=== PATIENT | female | born 1985 | race Caucasian/White ===

== ENCOUNTER 2018-09-09 13:15 | Inpatient (IN) | END 2018-09-11 16:41 | disposition home or self-care (01) | DRG 833 ==

== ENCOUNTER 2018-10-12 15:38 | Inpatient (IN) | payer OTHER ==
[~2018-10-12] VITALS: Ht 154.9 cm; Wt 66.3 kg
[~2018-10-12 15:38] MED LIST: PREN-93 PO
[2018-10-12 15:45] VITALS: BMI 27.6
[2018-10-12] MEDS ORDERED: TERBUTALINE 0 ML ONE (15:58)
[2018-10-12 16:00] VITALS: Ht 154.9 cm; Wt 66.3 kg
[2018-10-12] MEDS ORDERED: TERBUTALINE 1 MG/ML INJ SC ONE (16:00)
[2018-10-12] MEDS: LACTATED RINGER'S 1,000 ML IV SCH ×2 (16:25→19:50)
[2018-10-12] MEDS ORDERED: MAGNESIUM SULFATE 4 GM/100 ML 100 ML IV ONE (17:30)
[2018-10-12] MEDS: MAGNESIUM SULFATE 20 GM/500 ML 500 ML IV SCH (18:37)
[2018-10-12] MEDS ORDERED: BETAMET NA PHOS/AC(6 MG/ML) 2 ML INJ SYG IM ONE (21:00)
--- NOTE | 2018-10-12 23:48 | HP ---
Date/Time of Note Date/Time of Note DATE: 10/12/18 TIME: 23:32 OB - History Hx of Present Free Text/Dictation 33 y.o. A1 with an IUP at 33w 4d came in with moderate bleeding and was found to be suyapa so was admitted and started on magnesium sulfate. Chief Complaint: bleeding Estimated Due Date: Oct 12, 2018 : 2 Para: 0 Spontaneous : 1 Care: Good Care Ultrasounds: Normal mid trimester US Obstetrical Complications: Gestational Diabetes (newly diagnosed, as of last week.) Medical Complications: None Other Concerns: Pt was admitted one month ago with light bleeding but was not suyapa although an FFN was positive. Was given 2 doses of beta-methasone and d/c'ed home. PMHx: GDM. PSHx: none. NKDA. Past Family/Social History * Past Medical, Surgical, Family and Obstetric Histories reviewed from chart and with pt. Blood Type: O+ Rubella: immune RPR/VDRL: Negative GBS Status: Unknown HBsAG: Unknown OB Admission Exam Vital Signs Vital Signs Initial BP 141/88 Afebrile. Physical Exam HEENT: WNL Heart: Rhythm Normal Abdomen: WNL Extremities: Normal Reflexes: Normal Cervical Dilatation: None Effacement: 0% Station: Ballotable Membranes: Intact Heart Rate: 140's Accelerations: Accelerations Present Decelerations: No Decelerations Contractions on Admission: < 5 Minutes Apart Intensity: Mild Last 72 hours Lab Results CBC & BMP 10/12/18 16:06 Liver Function Test 10/12/18 16:06 Alanine Aminotransferase (ALT/SGPT) 15 Albumin 3.5 Alkaline Phosphatase 129 H Aspartate Amino Transf (AST/SGOT) 26 Direct Bilirubin 0.00 Total Protein 7.0 Magnesium Level Test 10/12/18 16:06 Magnesium Level 1.8 OB Assessment/Plan Reason for admission: labor, vaginal bleeding Other plan: Tocolysis with magnesium sulfate and a rescue dose of beta-methasone. Contractions increase when the pt has a need to void and then immediately space out once she has. Bedrest. Cx is 3.8 cm and closed, placenta anterior and w/o evidence of abruption and the pt reports that the pelvic pressure/cramping is greatly decreased, as well as the bleeding, since she came in. DEBO HARRIS MD Oct 12, 2018 23:44
[2018-10-13] MEDS: MAGNESIUM SULFATE 20 GM/500 ML 500 ML IV SCH ×2 (04:17→15:41)
[2018-10-13] MEDS: LACTATED RINGER'S 1,000 ML IV SCH ×4 (06:00→19:34)
--- NOTE | 2018-10-13 11:23 | QN ---
Documentation Comment progress note patient seen and evaluated no complaints no ctx, vaginal bleeding or discharge ab gravid, soft, nt extremity no edema no calf tenderness ve no active bleeding a/ iup atg 33 wks 5 days ga, vaginal bleeding resolved, no sign/symptoms of placenta abruption currently on mgso, received rescue sternoid treatment p/ repeat cbc today f/u with perinatology ESSIE GUTIERREZ MD Oct 13, 2018 11:23
[2018-10-13] MEDS ORDERED: BETAMET NA PHOS/AC(6 MG/ML) 2 ML INJ SYG IM ONE (13:00)
[2018-10-13] MEDS ORDERED: GLUCAGON 1 MG INJ IM PRN (14:30)
[2018-10-13] MEDS ORDERED: DEXTROSE 50% 50 ML SYRINGE IV PRN ×2 (14:30)
[2018-10-13] MEDS ORDERED: GLUCOSE GEL 15 GRAM TUBE PO PRN ×2 (14:30)
[2018-10-13] MEDS ORDERED: GLUCOSE GEL 15 GRAM TUBE BUCCAL PRN (14:30)
[2018-10-13] MEDS: INSULIN ASPART [NOVOLOG] 3 ML PEN SC SCH (17:05)
--- NOTE | 2018-10-14 00:04 | CONS ---
DATE OF ADMISSION: 10/12/2018 DATE OF CONSULTATION: 10/13/2018 HISTORY OF PRESENT ILLNESS: The patient presented with complaint of contractions and some spotting. She was placed on magnesium sulfate, given betamethasone. Currently, she is not bleeding and not co ntracting. Cervical length was 3.8 cm. She was newly, about 30 days ago, diagnosed with diabetes and given betamethasone. Her sugars are el evated. Ultrasound has been done which shows no evidence of previa; however, it is contradictory in terms of exactly which is the location of the placenta anterior, posterior or fundal as different reports repo rt different locations. However, it is consistent with no evidence of previa according to the ultras ounds done at [facility]. RECOMMENDATIONS: Continue with the magnesium sulfate until tomorrow morning. She is to get her [place] dose of betamethasone tonight. If she is not suyapa and no vaginal bleeding, she can be discharged home with labor prec autions. I do recommend to discharging the patient home on metformin 500 mg in the morning and 500 m g at bedtime with referral for perinatology consult for diabetes within a week of discharge. At that point, we will decide if the patient needs to be continued on medication or without the effect of be tamethasone, she can be managed with diet. Also, please refer for the transvaginal ultrasound to assess for previa, also for location of the rakel centa once and for all. Also, I started the patient on insulin sliding scale. Please do note that the patient does need a gl ucometer before going home and lancets and strips and everything else that is needed for diabetic con trol. Lastly, the patient is to be referred to diabetic consult and as I mentioned above. Dictated By: BRIAN ETIENNE MD ST/NTS Conf#: [id number] DID#: [id number] CC: DEBO HARRIS MD;*EndCC*
[2018-10-14] MEDS: ACCU-CHEK XX SCH ×4 (07:35→21:09)
[2018-10-14] MEDS: INSULIN ASPART [NOVOLOG] 3 ML PEN SC SCH ×3 (08:26→17:35)
[2018-10-14] MEDS: LACTATED RINGER'S 1,000 ML IV SCH ×2 (09:18→22:57)
--- NOTE | 2018-10-14 12:15 | NUR ---
Diabetes Education Referral: Thank you for the referral. Per records 3 hr GTT: 79/221/172/178 mg/dl Pt stated she did not have diabetes before 1 week ago. Pt stated she doesn't have any one in her household that has DM. Reviewed the cause of GDM and how the steroids are also causing the glucose levels to be higher than usual. With the use of sand operator (Nicolle) and handouts discussed at length with patient at bedside how diabetes works in the body, where the glucose comes from, how food breaks down into glucose, and how Metformin works. Reviewed glucose targets (pre and post meal), reviewed the different food groups and when/how to manage glucose by adjusting the carbohydrates and proteins. Reviewed signs and symptoms of hypoglycemia and treatment. After eligibility check, pt provided a Freestyle Lite glucometer. Reviewed how to use glucometer, change date and time, load lancet devices and how to correctly complete a glucose reading. Assisted patient in completing a finger stick, hospital glucometer read 108 mg/dl and pt's personal glucometer read 120 mg/dl. Reviewed the difference and reassured pt it was within the acceptable difference range. Reviewed that for lunch pt should avoid carbohydrates and focus on eating protein and vegetables. Pt verbalized understanding. Resources provided for future follow up. All questions answered.
--- NOTE | 2018-10-14 14:20 | NUR ---
Nutrition Consult RN, LYNN just finished a consult with her regarding GDM management. Pt. was tired and refused further education with me. I asked her to take the the GDM class next week on Saturday, which covers everything about diet and exercise. Pt. promised that she will attend the class next week. Will revisit tomorrow at bedside to answer any diet related questions. Thank you!
--- NOTE | 2018-10-14 17:50 | QN ---
Documentation Comment progress note patient seen and evaluated no complaints vs stabel afebrile patient reports large clots from vagina this morning currently no vaginal bleeding no ctx, no pain ab gravid, soft, nt extremity no edema no calf tenderness ve no active bleeding fhr cat 1 toco no ctx a/ iup atg 33 wks 5 days ga, third trimester vaginal bleeding, no sign/symptoms of placenta abruption received rescue sternoid treatment h/h stable p/ continue to monitor patient bleeding closely f./u with perinatology ESSIE GUTIERREZ MD Oct 14, 2018 17:50
[2018-10-15] MEDS: INSULIN ASPART [NOVOLOG] 3 ML PEN SC SCH ×3 (07:35→17:35)
[2018-10-15] MEDS: ACCU-CHEK XX SCH ×7 (07:35→21:00)
--- NOTE | 2018-10-15 13:24 | QN ---
Documentation Comment progress note patient seen and evaluated no complaints vs stable afebrile no vaginal bleeding/discharge currently no vaginal bleeding no ctx, no pain ab gravid, soft, nt extremity no edema no calf tenderness ve no active bleeding sono possible small placenta abruption fhr cat 1 toco no ctx a/ iup atg 33 wks 6 days ga, third trimester vaginal bleeding, no symptoms of placenta abruption received rescue sternoid treatment h/h stable p/ continue to monitor patient bleeding closely f./u with perinatology ESSIE GUTIERREZ MD Oct 15, 2018 13:24
[2018-10-15] MEDS: LACTATED RINGER'S 1,000 ML IV SCH (23:04)
[2018-10-16] MEDS: INSULIN ASPART [NOVOLOG] 3 ML PEN SC SCH (07:35)
[2018-10-16] MEDS: ACCU-CHEK XX SCH ×4 (08:15→20:20)
--- NOTE | 2018-10-16 08:36 | QN ---
Documentation Comment progress note patient seen and evaluated no complaints had vaginal spotting last night which resolved vs stable afebrile no vaginal bleeding/discharge currently no vaginal bleeding no ctx, no pain ab gravid, soft, nt extremity no edema no calf tenderness ve no active bleeding sono possible small placenta abruption fhr cat 1 toco no ctx a/ iup atg 34 wks 0 days ga, third trimester vaginal bleeding, no symptoms of placenta abruption received rescue sternoid treatment h/h stable p/ continue to monitor patient bleeding closely f./u with perinatology ESSIE GUTIERREZ MD Oct 16, 2018 08:36
[2018-10-16] MEDS: LACTATED RINGER'S 1,000 ML IV SCH (10:27)
[2018-10-17] MEDS: LACTATED RINGER'S 1,000 ML IV SCH (08:30)
[2018-10-17] MEDS: ACCU-CHEK XX SCH (10:55)
--- NOTE | 2018-10-17 13:36 | QN ---
Documentation Comment progress note patient seen and evaluated no complaints vs stable afebrile no vaginal bleeding/discharge currently no vaginal bleeding no ctx, no pain ab gravid, soft, nt extremity no edema no calf tenderness ve no active bleeding sono possible small placenta abruption fhr cat 1 toco no ctx a/ iup atg 34 wks 1 days ga, third trimester vaginal bleeding, no symptoms of placenta abruption received rescue sternoid treatment stable p/ continue to monitor patient bleeding closely f./u with perinatology ESSIE GUTIERREZ MD Oct 17, 2018 13:36
--- NOTE | 2018-10-18 07:16 | CONS ---
DATE OF ADMISSION: 10/12/2018 DATE OF CONSULTATION: 10/16/2018 HISTORY OF PRESENT ILLNESS: I had a brief consult on the patient previously. However, her situation has changed. So this is a new consult. This is a primigravida at 34 weeks and 3 days, who was admi tted a few days ago with complaint of vaginal bleeding. Cervical length normal. Based on the ultras ound there is no evidence of previa; however, there are some annular abnormalities of the placenta no shanika on the ultrasound. I reviewed the ultrasounds done in our clinic. I do not see any of the evide nce of the annular placenta and no abnormality around the placenta. She has had since her hospital s xuan she had another episode of blood clot the day before the consult so she was kept. She initially received magnesium sulfate, was given the rescue dose of betamethasone. She is currently status post magnesium. She is not suyapa and does not have any feeling of cramping or contractions. ALLERGIES: None. SURGICAL HISTORY: None. REVIEW OF SYSTEMS: All negative for all systems. PHYSICAL EXAMINATION: VITAL SIGNS: Stable. Physical examination deferred. heart tones reassuring. Contractions just irritabilities. IMPRESSION: Intrauterine at 34 weeks and at the time that I saw her 34 weeks and 1 day wit h at least 2 episodes of vaginal spotting and blood clot without evidence of previa, so the source of bleeding is unknown and her cervical length is normal. Status post magnesium and betamethasone, currently stable. RECOMMENDATIONS: Given the fact that she had 2 episodes of bleeding without any known reason, I do r ecommend in-house management until delivery. I will personally be present for the ultrasound beginni ng of next week just to assess the placenta with the gas worker personally. Please monitor the baby continuously. Otherwise, routine care. She should have a Hep-Lock IV. If she does have any severe bleeding please contact us further recommendations. Otherwise, as long a s there is no placenta previa and at that time vaginal delivery can be attempted if necessary, and I would have to say that delivery is not recommended unless he has heavy bleeding, contractions that ca nnot be stopped by tocolysis, or nonreassuring heart tone. Otherwise, continue the u ntil the patient goes into labor. I spoke to Dr. Sutton and to the patient about this. Dictated By: BRIAN ETIENNE MD ST/NTS Conf#: [id number] DID#: [id number] CC: DEBO HARRIS MD;*End*
[2018-10-18 07:54] VITALS: BP 97/47; PULSE 72; RESP 18
--- NOTE | 2018-10-18 11:44 | QN ---
Documentation Comment 33-year-old 2 para 0 at 34 weeks and 3 days of gestation with estimated date of delivery November 26, 2018 Patient is known to have annular placenta and was admitted in the hospital in September for vaginal bleeding She had received magnesium sulfate and betamethasone for lung maturity and subsequently discharged home She was admitted again the second time on October 12 with an episode of passing vaginal blood clot and patient subsequently received a second set rescue dose of betamethasone She currently has no complaints of vaginal bleeding, no complaints of uterine contractions or leaking fluid and reports positive movement She is gestational diabetic diet controlled Blood sugars within normal range Vital signs stable VS - Last 72 Hours, by Label Date Temp Pulse Resp B/P (MAP) Pulse Ox O2 O2 Flow FiO2 Time Delivery Rate 10/18/18 98.4 72 18 97/47 (64) Room Air 07:54 Chemistry Test 10/15/18 12:53 10/15/18 15:17 10/15/18 17:40 10/15/18 20:25 Bedside 79 88 76 108 Glucose mg/dL (70-220) mg/dL (70-220) mg/dL (70-220) mg/dL (70-220) Test 10/16/18 07:51 10/16/18 11:23 10/16/18 15:33 10/16/18 20:20 Bedside 79 74 106 109 Glucose mg/dL (70-220) mg/dL (70-220) mg/dL (70-220) mg/dL (70-220) Test 10/17/18 07:41 10/17/18 11:15 10/17/18 21:00 10/18/18 07:25 Bedside 80 79 118 88 Glucose mg/dL (70-220) mg/dL (70-220) mg/dL (70-220) mg/dL (70-220) [place] none heart rate tracing category 1 Cervical length within normal limits 3.8 cm PROCEDURE: US OB. CLINICAL INDICATION: bleeding , pain TECHNIQUE: Transabdominal views of the pelvis are available for review. COMPARISON: 10/12/18 FINDINGS: There is a single intrauterine gestation in a vertex position. The heart rate is noted at 154 bpm. The placenta is annular. There is a small amount of free retroplacental fluid noted. RPTAT: AA IMPRESSION: Small amount of retroplacental fluid, suspicious for a small area of placental abruption. Follow-up is recommended .Octaviano Matthews MD, Date Time Electronically viewed and signed by .Octaviano Matthews MD, on 10/14/2018 19:19 .S/ CC: ESSIE GUTIERREZ MD [id number] Assessment and plan Per perinatology consultation patient can continue until she goes into labor on her own Delivery is only recommended if she has heavy vaginal bleeding, uterine contractions that do not respond to tocolytics or nonreassuring heart rate tracing Patient scheduled to have an ultrasound by perinatologist on Saturday October 20, 2018 Will send for UA today Continue with current management DERRICK BHATIA MD Oct 18, 2018 11:44
[2018-10-18 12:06] VITALS: BP 103/55; PULSE 70; RESP 18
[2018-10-18 15:29] VITALS: BP 101/55; RESP 18
[2018-10-18 15:31] VITALS: BP 117/57; RESP 20
--- NOTE | 2018-10-19 11:40 | QN ---
Documentation Comment 34+wks GA admitted with Vb suspicious of Abruption Currently stable No VB BS stable GEN NAD NST reassuring [place] No CTXs Pelvic No blood at perineum --->Continue the same orders ALPESH ALEXIS M.D. Oct 19, 2018 11:40
[2018-10-19] MEDS ORDERED: CEPHALEXIN 500 MG CAP PO SCH (16:00)
[2018-10-19] MEDS: LACTATED RINGER'S 1,000 ML IV SCH (17:39)
[2018-10-20] MEDS: CEPHALEXIN 500 MG CAP PO SCH ×4 (00:04→21:14)
[2018-10-20] MEDS: LACTATED RINGER'S 1,000 ML IV SCH ×2 (01:13→09:31)
[2018-10-20] MEDS: PRENATAL VITAMIN PO SCH (10:13)
[2018-10-20] MEDS: FERROUS SULFATE (EC) 325 MG TAB PO SCH (10:13)
--- NOTE | 2018-10-20 11:59 | QN ---
Documentation Comment progress note patient seen and evaluated no complaints vs stable afebrile no vaginal bleeding/discharge currently no vaginal bleeding no ctx, no pain ab gravid, soft, nt extremity no edema no calf tenderness ve no active bleeding sono possible small placenta abruption fhr cat 1 toco no ctx a/ iup atg 34 wks ga, third trimester vaginal bleeding, no symptoms of placenta abruption received rescue sternoid treatment stable p/ continue to monitor patient bleeding closely f./u with perinatolog ESSIE GUTIERREZ MD Oct 20, 2018 11:59
[2018-10-21] MEDS: CEPHALEXIN 500 MG CAP PO SCH ×4 (03:35→19:12)
[2018-10-21] MEDS: FERROUS SULFATE (EC) 325 MG TAB PO SCH (09:17)
[2018-10-21] MEDS: PRENATAL VITAMIN PO SCH (09:17)
[2018-10-22] MEDS: CEPHALEXIN 500 MG CAP PO SCH ×4 (00:15→18:32)
[2018-10-22] MEDS: NACL 0.9% 3 ML SYG IV SCH ×3 (00:19→16:13)
--- NOTE | 2018-10-22 07:16 | PN ---
DATE: 10/21/2018 I did the ultrasound with the radiology sport internship. I do not see any evidence of placenta previa. Placenta is slightly to the right posterior and I do not see any evidence of annular placenta as ment ioned in the radiology report. Therefore, I do not know still the reason for the patient's bleeding and therefore it is best for the patient to be kept in house until delivery and the recommendations f or delivery remain as the same as I stated in my previous consult. Dictated By: BRIAN ETIENNE MD ST/NTS Conf#: [id number] DID#: [id number] CC: DEBO HARRIS MD;*EndCC*
[2018-10-22] MEDS: FERROUS SULFATE (EC) 325 MG TAB PO SCH (08:57)
[2018-10-22] MEDS: PRENATAL VITAMIN PO SCH (08:57)
--- NOTE | 2018-10-22 13:50 | QN ---
Documentation Comment progress note patient seen and evaluated no complaints vs stable afebrile no vaginal bleeding/discharge currently no vaginal bleeding no ctx, no pain ab gravid, soft, nt extremity no edema no calf tenderness ve no active bleeding sono possible small placenta abruption fhr cat 1 toco irritability a/ iup atg 34 wks ga, third trimester vaginal bleeding, no symptoms of placenta abruption received rescue sternoid treatment stable p/ continue to monitor patient bleeding closely ESSIE GUTIERREZ MD Oct 22, 2018 13:50
[2018-10-23] MEDS: CEPHALEXIN 500 MG CAP PO SCH ×5 (00:19→23:37)
[2018-10-23] MEDS: NACL 0.9% 3 ML SYG IV SCH (00:20)
[2018-10-23] MEDS: PRENATAL VITAMIN PO SCH (10:12)
[2018-10-23] MEDS: FERROUS SULFATE (EC) 325 MG TAB PO SCH (10:12)
--- NOTE | 2018-10-23 18:07 | QN ---
Documentation Comment progress note patient seen and evaluated no complaints vs stable afebrile no vaginal bleeding/discharge currently no vaginal bleeding no ctx, no pain ab gravid, soft, nt extremity no edema no calf tenderness ve no active bleeding sono possible small placenta abruption fhr cat 1 toco irritability a/ iup atg 35 wks ga, third trimester vaginal bleeding, no symptoms of placenta abruption received rescue sternoid treatment stable p/ continue to monitor patient bleeding closely ESSIE GUTIERREZ MD Oct 23, 2018 18:07
[2018-10-24] MEDS: CEPHALEXIN 500 MG CAP PO SCH ×3 (07:00→19:55)
[2018-10-24] MEDS: FERROUS SULFATE (EC) 325 MG TAB PO SCH (08:42)
[2018-10-24] MEDS: PRENATAL VITAMIN PO SCH (08:42)
--- NOTE | 2018-10-24 11:56 | NUR ---
TRACY NOTE: LOS ASSESSMENT Reviewed the pt's chart and met with her at bedside in Antepartum FBC-1 to assess. She was AA&Ox4 and had a bright affect. Pt spoke Angolan. Used the Interpretive Services line to communicate in Angolan. Landscape Gardener was Tejinder ID#[id number]. Pt was receptive. She verbalized a good understanding of the Plan of Care. Pt stated she is G-2 and P-0. GA is 35-2/7 weeks. EDC is on 11/26/2018. Pt stated she began PNC in March. Pt stated she lives with the FoB, Lito Saenz, : 1985 , at the address on the face sheet. 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 Pt is enrolled in the WIC program. Has a car seat and a crib for the baby. She stated she also has all other provisions for the baby as well. The couple has no family locally. The pt has a neighbor and a friend as her support system besides the FoB. Pt denied any DV, Etoh/drug use, and mental illness. Stated she is coping well with her hospitalization. No other known P/S issues. SW provided supportive intervention and will remain available. Addendum: 10/24/18 at 1213 by HARJEET HERNANDEZ LCSW Amended: Links added.
--- NOTE | 2018-10-24 19:12 | QN ---
Documentation Comment VSS afebrile NO vaginal bleeding CAT I tracing EFM CFM uc seldom A IUP 35w2d Hx of vaginal bleeding no previa source not found P observation at [facility] deliver at 37w /rec by DANIEL Smith MD Oct 24, 2018 19:12
[2018-10-25] MEDS: CEPHALEXIN 500 MG CAP PO SCH ×5 (02:32→19:52)
[2018-10-25] MEDS: FERROUS SULFATE (EC) 325 MG TAB PO SCH (08:28)
[2018-10-25] MEDS: PRENATAL VITAMIN PO SCH (08:28)
[2018-10-26] MEDS: CEPHALEXIN 500 MG CAP PO SCH ×2 (00:23→06:12)
[2018-10-26] MEDS: FERROUS SULFATE (EC) 325 MG TAB PO SCH (08:50)
[2018-10-26] MEDS: PRENATAL VITAMIN PO SCH (08:50)
[2018-10-27] MEDS: PRENATAL VITAMIN PO SCH (09:27)
[2018-10-27] MEDS: FERROUS SULFATE (EC) 325 MG TAB PO SCH (09:27)
--- NOTE | 2018-10-27 16:08 | QN ---
Documentation Comment 35+wks GA admitted with Vb suspicious of Abruption Currently stable No VB BS stable GEN NAD NST reassuring [place] No CTXs Pelvic No blood at perineum --->Continue the same orders ALPESH ALEXIS M.D. Oct 27, 2018 16:08
[2018-10-28] MEDS: FERROUS SULFATE (EC) 325 MG TAB PO SCH (08:48)
[2018-10-28] MEDS: PRENATAL VITAMIN PO SCH (08:48)
--- NOTE | 2018-10-28 12:19 | QN ---
Documentation Comment 35+wks GA admitted with Vb suspicious of Abruption Currently stable No VB BS stable GEN NAD NST reassuring [place] No CTXs Pelvic No blood at perineum --->Continue the same orders ALPESH ALEXIS M.D. Oct 28, 2018 12:19
--- NOTE | 2018-10-29 09:44 | QN ---
Documentation Comment progress note patient seen and evaluated no complaints vs stable afebrile no vaginal bleeding/discharge currently no vaginal bleeding no ctx, no pain ab gravid, soft, nt extremity no edema no calf tenderness ve no active bleeding sono possible small placenta abruption fhr cat 1 toco irritability a/ iup atg 36 wks ga, third trimester vaginal bleeding, no symptoms of placenta abruption received rescue sternoid treatment stable p/ continue to monitor patient bleeding closely ESSIE GUTIERREZ MD Oct 29, 2018 09:44
[2018-10-30] MEDS: FERROUS SULFATE (EC) 325 MG TAB PO SCH (09:11)
[2018-10-30] MEDS: PRENATAL VITAMIN PO SCH (09:11)
--- NOTE | 2018-10-30 16:58 | QN ---
Documentation Comment progress note patient seen and evaluated no complaints vs stable afebrile no vaginal bleeding/discharge currently no vaginal bleeding no ctx, no pain ab gravid, soft, nt extremity no edema no calf tenderness ve no active bleeding sono possible small placenta abruption fhr cat 1 toco no ctx a/ iup atg 36 wks ga, third trimester vaginal bleeding, no symptoms of placenta abruption received rescue sternoid treatment stable p/ continue to monitor patient bleeding closely ESSIE GUTIERREZ MD Oct 30, 2018 16:58
[2018-10-31] MEDS: FERROUS SULFATE (EC) 325 MG TAB PO SCH (10:12)
[2018-10-31] MEDS: PRENATAL VITAMIN PO SCH (10:12)
--- NOTE | 2018-10-31 16:30 | NUR ---
SW NOTE: F/U Followed up with the pt at bedside. She had a bright affect. Stated she is at GA of 36.2 weeks today. Stated she has a good understanding of the plan of care. Stated baby may be delivered via at GA of 37 weeks. She stated she is trying to remain positive. SW provided supportive intervention and encouraged the pt to continue verbalizing her feeling related to her hospitalization and condition. Pt denied any depression and other P/S issues at this time. SW to remain available.
[2018-11-01] MEDS: FERROUS SULFATE (EC) 325 MG TAB PO SCH (09:37)
[2018-11-01] MEDS: PRENATAL VITAMIN PO SCH (09:38)
[2018-11-02] MEDS: FERROUS SULFATE (EC) 325 MG TAB PO SCH (08:34)
[2018-11-02] MEDS: PRENATAL VITAMIN PO SCH (08:34)
[2018-11-03] MEDS: FERROUS SULFATE (EC) 325 MG TAB PO SCH (09:30)
[2018-11-03] MEDS: PRENATAL VITAMIN PO SCH (09:30)
[2018-11-03] MEDS: DOCUSATE SODIUM 100 MG CAP PO SCH (09:30)
--- NOTE | 2018-11-03 12:03 | QN ---
Documentation Comment Late Entry Note 11/02 36+wks GA admitted with Vb suspicious of Abruption Currently stable No VB BS stable GEN NAD NST reassuring [place] No CTXs Pelvic No blood at perineum --->Continue the same ord ALPESH ALEXIS M.D. Nov 03, 2018 12:03
--- NOTE | 2018-11-03 12:04 | QN ---
Documentation Comment 36+wks GA admitted with Vb suspicious of Abruption Currently stable No VB BS stable GEN NAD NST reassuring [place] No CTXs Pelvic No blood at perineum --->Continue the same order ALPESH ALEXIS M.D. Nov 03, 2018 12:04
[2018-11-04] MEDS: PRENATAL VITAMIN PO SCH (09:19)
[2018-11-04] MEDS: DOCUSATE SODIUM 100 MG CAP PO SCH (09:19)
[2018-11-04] MEDS: FERROUS SULFATE (EC) 325 MG TAB PO SCH (09:21)
--- NOTE | 2018-11-04 18:25 | QN ---
Documentation Comment Comment 36+wks GA admitted with Vb suspicious of Abruption Currently stable No VB BS stable GEN NAD NST reassuring [place] No CTXs Pelvic No blood at perineum --->Continue the same order ALPESH ALEXIS M.D. Nov 04, 2018 18:25
[2018-11-05] MEDS: FERROUS SULFATE (EC) 325 MG TAB PO SCH (11:06)
[2018-11-05] MEDS: PRENATAL VITAMIN PO SCH (11:06)
[2018-11-05] MEDS: DOCUSATE SODIUM 100 MG CAP PO SCH (11:06)
--- NOTE | 2018-11-05 15:05 | PN ---
Date/Time of Note Date/Time of Note DATE: 11/05/18 TIME: 15:03 OB Subjective Subjective Subjective Patient seen and examined. She states good movement. She denies nausea, vomiting, shortness of breath, chest pain, abdominal pain between contractions, headache, visual changes, vaginal bleeding or LOF. OB Objective Objective Objective Blood pressure 122/72, pulse rate 68/minutes, respiratory rate 16/minutes, temperature 98.3 General: Patient appears well, alert and oriented, NAD, appropriate mood and affect ABD: gravid, soft, non-tender. Back: No CVA tenderness (B/L) LE: Mild edema. No clubbing, cyanosis, edema, thigh or calf tenderness bilaterally FHT: 135 bpm , moderate variability with acceleration, no deceleration-category I Contractions: None OB Assessment/Plan Other plan: 33 Year-old G 2 para 0010 at 37 weeks with the third trimester vaginal bleeding. She is currently afebrile, vital signs stable. She has no vaginal bleeding at this time. She has received magnesium sulfate and rescue dose of betamethasone previously. She was seen by perinatologist. Please see the note for detail. Observe her closely, follow-up with her primary OB CIRA SANDERSON Nov 05, 2018 15:05
--- NOTE | 2018-11-05 15:35 | QN ---
Documentation Comment progress note patient seen and evaluated no complaints vs stable afebrile no vaginal bleeding/discharge currently no vaginal bleeding no ctx, no pain ab gravid, soft, nt extremity no edema no calf tenderness ve no active bleeding sono possible small placenta abruption fhr cat 1 toco occasional ctx a/ iup atg 37 wks ga, third trimester vaginal bleeding, no symptoms of placenta abruption received rescue sternoid treatment stable p/ continue to monitor patient bleeding closely recommended by dr. calvillo to deliver by 39 wks ESSIE GUTIERREZ MD Nov 05, 2018 15:35
[2018-11-06] MEDS: DOCUSATE SODIUM 100 MG CAP PO SCH (09:25)
[2018-11-06] MEDS: PRENATAL VITAMIN PO SCH (09:26)
[2018-11-06] MEDS: FERROUS SULFATE (EC) 325 MG TAB PO SCH (09:26)
[2018-11-07] MEDS: DOCUSATE SODIUM 100 MG CAP PO SCH (09:54)
[2018-11-07] MEDS: PRENATAL VITAMIN PO SCH (09:54)
[2018-11-07] MEDS: FERROUS SULFATE (EC) 325 MG TAB PO SCH (09:54)
[2018-11-08] MEDS: PRENATAL VITAMIN PO SCH (08:57)
[2018-11-08] MEDS: DOCUSATE SODIUM 100 MG CAP PO SCH (08:57)
[2018-11-08] MEDS: FERROUS SULFATE (EC) 325 MG TAB PO SCH (08:57)
[2018-11-09] MEDS ORDERED: LACTATED RINGER'S 1,000 ML IV SCH (06:48)
[2018-11-09] MEDS ORDERED: MISOPROSTOL 200 MCG TAB PR PRN ×2 (07:00→08:00)
[2018-11-09] MEDS ORDERED: LIDOCAINE 1% (MPF) 30 ML INJ INJ PRN ×2 (07:00→08:00)
[2018-11-09] MEDS ORDERED: IBUPROFEN 600 MG TAB PO PRN ×2 (07:00→08:00)
[2018-11-09] MEDS ORDERED: OXYTOCIN 30 UNITS/LR 500 ML IV PRN ×2 (07:00→08:00)
[2018-11-09] MEDS ORDERED: METHYLERGONOVINE 0.2 MG INJ IM PRN ×2 (07:00→08:00)
[2018-11-09] MEDS ORDERED: CARBOPROST 250 MCG INJ IM PRN ×2 (07:00→08:00)
[2018-11-09] MEDS ORDERED: OXYTOCIN 30 UNITS/LR 500 ML IV SCH ×5 (07:00→08:00)
--- NOTE | 2018-11-09 07:53 | QN ---
Documentation Comment progress note labor and delivery patient was seen and evaluated reported to have srom since 6 am no active bleeding with positive ctx vs stable afebrile ab gravid nt extremity no edema no calf tenderness ve 1-2/70/-3 pooling fhr cat 1 toco regular a/ iup at term in labor, srom p/ anticipate vaginal delivery ESSIE GUTIERREZ MD Nov 09, 2018 07:53
[2018-11-09] MEDS ORDERED: AMPICILLIN 2 GM/NS (PMX) 100 ML IV ONE (08:00)
[2018-11-09] MEDS: LACTATED RINGER'S 1,000 ML IV SCH ×2 (08:41→12:42)
[2018-11-09] MEDS ORDERED: BUTORPHANOL 1 MG INJ IV PRN (11:30)
[2018-11-09] MEDS ORDERED: BUTORPHANOL 2 MG INJ IV PRN (11:30)
[2018-11-09] MEDS ORDERED: FENTAnyl 2MCG/ML-ROPIV 0.2% 100 ML ONE (12:41)
[2018-11-09] MEDS: AMPICILLIN 1 GM/NS (PMX) 50 ML IV SCH ×3 (12:45→20:29)
--- NOTE | 2018-11-09 12:48 | PREAC ---
Date/Time of Note Date/Time of Note DATE: 11/09/18 TIME: 12:47 Anesthesia Eval and Record Evaluation Time Pre-Procedure Interview DATE: 11/09/18 TIME: 12:47 Age 33 Sex female NPO: 8 hrs Preoperative diagnosis Labor Pain Planned procedure Labor Epidural Past Medical History Past Medical History: Includes : : (1), Para: (0), Gestational age: (37) Surgery & Anesthesia Issues No known issue Meds Anticoagulation: No Beta Richard within 24 hr: No Reason Beta Richard not given: Pt. not on B-Richard Reported Medications Vit No.124/Iron/FA ( Vitamin Tablet) 1 Each Tablet, 1 EACH PO DAILY, TAB 09/09/18 Current Medications Lactated Ringer's 1,000 ml @ 125 mls/hr Q8H IV Last administered on 11/09/18at 12:42; Admin Dose 125 MLS/HR; Start 11/09/18 at 07:59 Dextrose/Lactated Ringer's 1,000 ml @ 125 mls/hr Q8H IV ; Start 11/09/18 at 07:59 Ampicillin 50 ml @ 100 mls/hr Q4H IV Last administered on 11/09/18at 12:45; Admin Dose 100 MLS/HR; Start 11/09/18 at 12:00 Lidocaine (Xylocaine 1% (Mpf)) 30 ml ONCE PRN INJ EPISIOTOMY; Start 11/09/18 at 08:00 Oxytocin/Lactated Ringer's 500 ml @ 500 mls/hr ONCE POST IV ; Start 11/09/18 at 08:00 Oxytocin/Lactated Ringer's 500 ml @ 125 mls/hr POST IV ; Start 11/09/18 at 08:00 Ibuprofen (Motrin) 600 mg ONCE PRN PO PAIN LEVEL 1-5; Start 11/09/18 at 08:00 Oxytocin/Lactated Ringer's 500 ml @ 0 mls/hr ONCE PRN IV VAGINAL BLEEDING; Sta rt 11/09/18 at 08:00 Methylergonovine Maleate (Methergine) 0.2 mg ONCE PRN IM VAGINAL BLEEDING; Start 11/09/18 at 08:00 Carboprost Tromethamine (Hemabate) 250 mcg ONCE PRN IM VAGINAL BLEEDING; Start 11/09/18 at 08:00 Misoprostol (Cytotec) 1,000 mcg ONCE PRN MA VAGINAL BLEEDING; Start 11/09/18 at 08:00 Oxytocin/Lactated Ringer's 500 ml @ 0 mls/hr FOR AUGMENTATION IV ; Start 11/09/18 at 08:00 Butorphanol Tartrate (Stadol) 1 mg Q2H PRN IV PAIN; Start 11/09/18 at 11:30 Butorphanol Tartrate (Stadol) 2 mg Q2H PRN IV PAIN; Start 11/09/18 at 11:30 Meds reviewed: Yes Allergies Coded Allergies: No Known Allergy (Unverified , 10/12/18) Allergies Reviewed: Yes Labs/Studies Labs Reviewed: Reviewed by anesthesiologist Result Diagram: 11/09/18 0715 11/09/18 0715 Laboratory Tests 11/09/18 07:15 Blood Bank Test 11/09/18 07:15 Antibody Screen NEGATIVE Blood Type O POSITIVE test: Positive Studies: ECG (n/a), CXR (n/a) Pre-procedure Exam Airway: Adequate mouth opening, Adequate thyromental dist Mallampati: Mallampati II Teeth: Normal Lung: Normal Heart: Normal ASA Physical Status ASA physical status: 2 Emergency: None Planned Anesthetic Neuraxial: Epidural Planned Pain Management Epidural Pre-operative Attestations Prior to commencing anesthesia and surgery, the patient was re-evaluated, there was verification of: *The patient's identity *The results of appropriate recent lab work and preoperative vital signs *The above evaluation not changing prior to induction *Anesthetic plan, risk benefits, alternative and complications discussed with patient/family; questions answered; patient/family understands, accepts and wishes to proceed. TERESO FUNK MD Nov 09, 2018 12:48
--- NOTE | 2018-11-09 12:50 | PAC ---
Date/Time of Note Date/Time of Note DATE: 11/09/18 TIME: 12:50 Post-Anesthesia Notes Post-Anesthesia Note Last documented vital signs T: 98.1 Activity: WNL Respiratory function: WNL Cardiovascular function: WNL Mental status: Baseline Pain reasonably controlled: Yes Hydration appropriate: Yes Nausea/Vomiting absent: Yes TERESO FUNK MD Nov 09, 2018 12:50
[2018-11-09] MEDS: DEXTROSE 5%-LR 1,000 ML IV SCH (12:52)
[2018-11-09] MEDS ORDERED: NALOXONE (0.4 MG/ML) INJ IV PRN (13:00)
[2018-11-09] MEDS: FENTAnyl 2MCG/ML-ROPIV 0.2% 100 ML BAG EPI SCH (20:35)
[2018-11-10] VITALS (20 sets, daily range): BP systolic 103–146; BP diastolic 69–96; PULSE 102–149; RESP 16–23
[2018-11-10] MEDS: LACTATED RINGER'S 1,000 ML IV SCH (00:18)
[2018-11-10] MEDS: DEXTROSE 5%-LR 1,000 ML IV SCH (00:19)
[2018-11-10] MEDS: AMPICILLIN 1 GM/NS (PMX) 50 ML IV SCH ×2 (00:19→04:15)
[2018-11-10] MEDS ORDERED: MINERAL OIL LIGHT 10 ML VIAL TOP ONE (03:00)
[2018-11-10] MEDS: FENTAnyl 2MCG/ML-ROPIV 0.2% 100 ML BAG EPI SCH (03:37)
[2018-11-10] MEDS: ACCU-CHEK XX SCH ×3 (07:40→13:11)
[2018-11-10] MEDS ORDERED: SOD CHLORIDE 0.9% 1,000 ML IV SCH (09:00)
[2018-11-10] MEDS ORDERED: OXYTOCIN 30 UNITS/LR 500 ML IV SCH (09:33)
--- NOTE | 2018-11-10 09:33 | LDN ---
Date/Time of Note Date/Time of Note DATE: 11/10/18 TIME: 09:29 Delivery Summary hemorrhage improve with uterotonic however will give blood transfusion for acute blood loss and observe patient in ICU Weeks of Gestation 37 Assisted Vaginal Delivery: Vacuum (kiwi vacuum with 3 pulls, 30 seconds no pop offs, no complication) Placenta Delivered: Spontaneously Meconium: none Episiotomy: Yes Laceration repair: rmle repair with 2-0 and 3-0 chromic Anesthesia type: Local Estimated blood loss: 1000 Sponge & Needle done & correct: Yes All needle counts correct: Yes Any foreign bodies felt in the: No Infant Delivery Information Sex Sex: female Apgars 1 Minute: 9 5 Minute: 9 Suctioning Nose & mouth suctioned at waldo: No Delee suction performed: No Umbilical Cord Umbilical cord with: 3 Vessels Cord presentations: no nuchal cord Cord Blood was obtained: Yes Mother & Baby Disposition Disposition Mom transferred to: ICU Baby to NICU: No ESSIE GUTIERREZ MD Nov 10, 2018 09:33
[2018-11-10] MEDS ORDERED: MISOPROSTOL 200 MCG TAB PR PRN (10:00)
[2018-11-10] MEDS ORDERED: NACL 0.9% 3 ML SYG IV SCH (10:00)
[2018-11-10] MEDS ORDERED: LANOLIN HPA 1 PKT TOP PRN (10:00)
[2018-11-10] MEDS ORDERED: SENNA/DOCUSATE NA (8.6MG/50MG) TAB PO PRN (10:00)
[2018-11-10] MEDS ORDERED: ONDANSETRON 4 MG INJ IV PRN (10:00)
[2018-11-10] MEDS ORDERED: METHYLERGONOVINE 0.2 MG INJ IM PRN (10:00)
[2018-11-10] MEDS ORDERED: CARBOPROST 250 MCG INJ IM PRN (10:00)
[2018-11-10] MEDS ORDERED: DIPHENHYDRAMINE 25 MG CAP PO PRN (10:00)
[2018-11-10] MEDS ORDERED: ACETAMINOPHEN 325 MG TAB PO PRN (10:00)
[2018-11-10] MEDS ORDERED: WITCH HAZEL/GLYCERIN PAD PR PRN (10:00)
[2018-11-10] MEDS ORDERED: BENZOCAINE 20% 56 ML SPRAY TOP PRN (10:00)
[2018-11-10] MEDS ORDERED: OXYTOCIN 30 UNITS/LR 500 ML IV PRN (10:00)
[2018-11-10] MEDS ORDERED: OXYCODONE/ASPIRIN (4.88/325) TAB PO PRN (10:00)
[2018-11-10] MEDS ORDERED: CEFAZOLIN 2 GM/50 ML (PMX) 50 ML IVPB SCH (14:00)
--- NOTE | 2018-11-10 17:33 | NUR ---
1045: Patient transferred from L&D currently getting 1 unit PRBC and oxytocin. Patient AO4 with post bleeding, on room air, resting comfortably in bed. VSS. WCTM. 1200: Second unit PRBC given without incident. VSS. WCTM. 1430: MD Sutton called and updated on patient's status. Stated Okay to transfer to post pending hospitalist recs. VSS. WCTM. 1630: MD Fortune at bedside. Stated patient okay to transfer to Post unit. VSS. WCTM. 1710: Report given to post nurse. Awaiting transport.
[2018-11-10] MEDS: SENNA/DOCUSATE NA (8.6MG/50MG) TAB PO SCH (21:00)
[2018-11-10] MEDS: OXYCODONE/ASPIRIN (4.88/325) TAB PO PRN (22:04)
[2018-11-10] MEDS: FERROUS SULFATE (EC) 325 MG TAB PO SCH (22:04)
[2018-11-10] MEDS: CEFAZOLIN 2 GM/50 ML (PMX) 50 ML IVPB SCH (23:17)
--- NOTE | 2018-11-11 03:02 | NUR ---
EOSS FAIR NITE FOR REPEAT CBC TODAY
[2018-11-11 03:03] VITALS: BP 120/64; PULSE 92; RESP 20
[2018-11-11] MEDS: ACCU-CHEK XX SCH ×4 (08:10→20:05)
[2018-11-11 08:20] VITALS: BP 110/68; PULSE 86; RESP 18
[2018-11-11] MEDS: FERROUS SULFATE (EC) 325 MG TAB PO SCH ×2 (08:58→21:48)
[2018-11-11] MEDS: CEFAZOLIN 2 GM/50 ML (PMX) 50 ML IVPB SCH (08:59)
[2018-11-11] MEDS: SENNA/DOCUSATE NA (8.6MG/50MG) TAB PO SCH ×2 (09:00→21:48)
[2018-11-11 16:00] VITALS: BP 102/63; PULSE 98; RESP 18
[2018-11-11] MEDS: OXYCODONE/ASPIRIN (4.88/325) TAB PO PRN (16:07)
--- NOTE | 2018-11-11 18:45 | NUR ---
EOSS: Vital signs stable, MD was notified of cbc result and ordered to be repeated this evening. Fundus firm, lochia small. Bonding with baby.
[2018-11-11 20:00] VITALS: BP 114/65; PULSE 92; RESP 18
--- NOTE | 2018-11-11 20:17 | QN ---
Documentation Comment progress note ppd 1 patient seen and evaluated no complaints no headache, n/v, sob, visual changes, palpitation vs stable afebrile lungs cta bl cvs positive s1s2 rrr ab soft nt uterine fundus firm at umbilicus extremity no edema no calf tenderness ve episiotomy intact, no active bleeding a/ sp vavd, ppd 1 received 2 units of prbc secondary to hemorrage/ acute blood loss currently h/h stable, p/ repeat cbc in am consider discharge home tomorrow if stable ESSIE GUTIERREZ MD Nov 11, 2018 20:17
[2018-11-12 04:00] VITALS: BP 128/91; PULSE 91; RESP 18
--- NOTE | 2018-11-12 06:10 | NUR ---
EOSS: PATIENT IN STABLE CONDITION. VOIDING WELL. NO DIARRHEA DURING SHIFT. FUNDUS FIRM AT UMBILICUS WITH SMALL AMOUNT OF LOCHIA. AND FEEDING FORMULA TO VIA BOTTLE. BONDING WELL WITH . AFEBRILE. FOB AT BEDSIDE.
[2018-11-12] MEDS: ACCU-CHEK XX SCH (07:30)
[2018-11-12 08:30] VITALS: BP 122/78; PULSE 95; RESP 18
[2018-11-12] MEDS: FERROUS SULFATE (EC) 325 MG TAB PO SCH (08:58)
[2018-11-12] MEDS: OXYCODONE/ASPIRIN (4.88/325) TAB PO PRN (08:58)
[2018-11-12] MEDS: SENNA/DOCUSATE NA (8.6MG/50MG) TAB PO SCH (09:00)
[2018-11-12 12:22] VITALS: BP 114/74; PULSE 88
[2018-11-12 16:00] VITALS: BP 108/70; PULSE 85
--- NOTE | 2018-11-12 18:30 | NUR ---
EOSS CONDITION IS STABLE. AFEBRILE ALL SHIFT. NO COMPLAINTS OF HEAD ACHE, WEAKNESS OR ANY BLURRED VISION OR SHORTNESS OF BREATHE. VOIDING IN GOOD AMOUNTS. NO EXCESSIVE BLEEDING.
--- NOTE | 2018-11-12 20:14 | PD.PPDC ---
[employer] Discharge Instruction Condition [id number] Patient Condition: Qohkc5t Good Diet Seysk5Te Diet: Umosj4o Resume Regular Diet Activity/Restrictions [id number] Activity: Qomxz2h Normal Activity May Shower [id number] Restrictions: Sdhxa2f No Exercising No Lifting No Driving No Sexual Activity Nothing in the Vagina No [place] No Tampons, douche Follow-up Follow-up with Physician: 1, Week/Weeks Return to clinic for [id number] [employer] Instructions: Nuufm5p Fever greater than 101 Chills Worsening abdominal pain Excessive Vaginal Bleeding More than 2 pads per hour Unable to tolerate diet [id number] OB Instructions: Oriqh3j Breast Tenderness Depression Blurried Vision Headache Tonoj7Ve Surgical Instructions: Uqwvf4l Incisional Drainage Incisional Redness ESSIE GUTIERREZ MD Nov 12, 2018 20:14
--- NOTE | 2018-11-12 20:18 | DS ---
Date/Time of Note Date/Time of Note DATE: 11/12/18 TIME: 20:15 Obstetrical Discharge Record Final Diagnosis Final Diagnosis: Term delivered Vaginal Delivery Obstetrical Delivery: Episiotomy, Repaired, Vacuum Extraction Complications Gestational Diabetes, Other (post hemorage ) Augmentation: Yes Induction: No Condition on Discharge Physical Assessment Last Vitals: stable afebrile Voiding: Yes Bowel Movement: Yes Breast: Soft, non-tender, Filling Fundus: Firm Abdomen and Incision: fundus firm below umbilicus Episiotomy: intact Calf Tenderness: No Patient Condition: ESSIE Hernandez MD Nov 12, 2018 20:18
--- NOTE | 2018-11-12 20:54 | NUR ---
EOSS; DISCHARGE HOME BY DR. GUTIERREZ. STABLE CONDITION. DISCHARGE INSTRUCTION PAPERS GIVEN AND VERBALIZED UNDERSTANDING.
== END 2018-11-12 20:55 | disposition home or self-care (01) | DRG 806 ==
LOC: OBT 15:38 → L-D 15:39 → OBT 16:45 → PP1 10-13 22:01 → L-D 10-19 16:54 → PP1 11-08 14:07 → L-D 11-09 06:57 → ICU 11-10 10:24 → PP1 11-10 18:00
PROVIDERS: ADMIT Obstetrics & Gynecology; ATTEND Obstetrics & Gynecology
PROC: 10D07Z6 Extraction of Products of Conception, Vacuum, Via Natural or Artificial Opening (ICD-10-PCS; principal; 2018-11-09)
PROC: 0W8NXZZ Division of Female Perineum, External Approach (ICD-10-PCS; 2018-11-09)
PROC: 30233N1 Transfusion of Nonautologous Red Blood Cells into Peripheral Vein, Percutaneous Approach (ICD-10-PCS; 2018-11-10)
DX: O24.429 Gestational diabetes mellitus in childbirth, unspecified control (principal); O72.1 Other immediate postpartum hemorrhage; Z37.0 Single live birth; D62 Acute posthemorrhagic anemia; Z3A.37 37 weeks gestation of pregnancy; O90.81 Anemia of the puerperium
CPT/HCPCS: 36415; 36430; 62319; 76815; 76817; 76818; 80053; 81001; 81003; 82947; 82962; 83735; 84560; 85014; 85018; 85025; 85610; 85730; 86592; 86850; 86900; 86901; 86920; 87081; 87086; 87340; 88307; 99464; G0463; J0290; J0690; J0702; J1815; J2210; J2590; J3010; J3105; J3475; J7120; J7121; P9016